=== PATIENT | female | born 1975 | race Caucasian/White ===

== ENCOUNTER 2025-06-16 15:31 | Emergency (ER) | payer BC ==
[2025-06-16 15:53] VITALS: RESP 16; TEMP 97
--- NOTE | 2025-06-16 15:59 | ERPHSYRPT ---
- History of Present Illness Time Seen by Provider: 06/16/25 15:50 Source: patient Exam Limitations: no limitations Patient Subjective Stated Complaint: patient states she started having palpitations from 160-190s heart rate, patient states she feels as if her heart rate is irregular, patient stated she could feel her face getting red/flushed Triage Nursing Assessment: patient presents to ed via private vehicle, patient able to walk into ed without complication, patient alert and oriented x 4, patient states her heart rate has been elevated running 160s-190s throughout the day, patient states she has anxiety and this has happened before; however, has not lasted this long, patient denies chest pain, skin n/w/d, vitals wnl Physician History: 49-year-old female presents emergency room with episodic palpitations patient reports she was at work when her monitor her [employer] Watch went off to like the 180s she denies any chest pain no shortness of breath at this time she drinks a diet Mountain Dew every day Timing/Duration: today Severity: mild Associated Symptoms: No nausea, No vomiting, No shortness of breath, No heartburn, No diaphoresis, No chest pain Allergies/Adverse Reactions: No Known Drug Allergies Allergy (Unverified 06/16/25 15:45) Travel Risk - International Travel Have you traveled outside of the country in past 3 weeks: No - Emerging Infectious Disease Are you exhibiting symptoms associated with any current EIDs: No - Review of Systems Constitutional: No Fever, No Chills Eyes: No Symptoms Ears, Nose, & Throat: No Symptoms Respiratory: No Cough, No Dyspnea Cardiac: Palpitations, No Chest Pain, No Edema, No Syncope Abdominal/Gastrointestinal: No Abdominal Pain, No Nausea, No Vomiting, No Diarrhea Genitourinary Symptoms: No Dysuria Musculoskeletal: No Back Pain, No Neck Pain Skin: No Rash Neurological: No Dizziness, No Focal Weakness, No Sensory Changes Psychological: No Symptoms Endocrine: No Symptoms All Other Systems: Reviewed and Negative - Past Medical History Pertinent Past Medical History: No Other Medical History: duloxetine 20 mg, control - Past Surgical History Past Surgical History: Yes Other Surgical History: back surgery in 1995 - Female History Hx Now: No - Social History Smoking Status: Never smoker Exposure to second hand smoke: No Drug Use: none - Social Determinants of Health Will the patient participate in the screening: Yes Do you worry about a steady place to live?: No Do you have any problems with any of the following?: No known problems In the past 12 months,have you had to go without utilities?: No Transportation Issues: No Has anyone in your support network made you feel unsafe?: No Have you or anyone in your house had to go w/o enough food: No - Nursing Vital Signs Nursing Vital Signs: Initial Vital Signs Temperature 97 F 06/16/25 15:32 Pulse Rate 93 H 06/16/25 15:32 Respiratory Rate 16 06/16/25 15:32 Blood Pressure 109/69 06/16/25 15:32 O2 Sat by Pulse Oximetry 99 06/16/25 15:32 Pain Scale Pain Intensity 0 - Physical Exam General Appearance: no apparent distress, alert Eye Exam: PERRL/EOMI, eyes nml inspection Ears, Nose, Throat Exam: normal ENT inspection, TMs normal, pharynx normal, moist mucous membranes Neck Exam: normal inspection, non-tender, supple, full range of motion Respiratory Exam: normal breath sounds, lungs clear, No respiratory distress Cardiovascular Exam: regular rate/rhythm, normal heart sounds, normal peripheral pulses Gastrointestinal/Abdomen Exam: soft, normal bowel sounds, No tenderness, No mass Back Exam: normal inspection, normal range of motion, No CVA tenderness, No vertebral tenderness Extremity Exam: normal inspection, normal range of motion, pelvis stable Neurologic Exam: alert, oriented x 3, cooperative, normal mood/affect, nml cerebellar function, nml station & gait, sensation nml, No motor deficits Skin Exam: normal color, warm, dry, No rash Lymphatic Exam: No adenopathy SpO2: 99 - Course Nursing assessment & vital signs reviewed: Yes EKG Interpreted by Me: RATE (85), Sinus Rhythm, Non-specific ST Changes, Other (no STEMI) Ordered Tests: Active Orders 24 hr Category Date Time Status Counselor Education Professor STAT Care 06/16/25 15:52 Active EKG-ER Only STAT Care 06/16/25 15:51 Active IV Insertion STAT Care 06/16/25 15:51 Active CHEST 1 VIEW (PORTABLE) Stat Exams 06/16/25 15:52 Completed CBC W DIFF Stat Lab 06/16/25 15:50 Completed CMP Stat Lab 06/16/25 15:50 Completed D-DIMER QUANTITATIVE Stat Lab 06/16/25 15:50 Completed HCG QUALITATIVE, URINE Stat Lab 06/16/25 Ordered MAGNESIUM Stat Lab 06/16/25 15:50 Completed TROPONIN Q3H Lab 06/16/25 15:50 Completed TROPONIN Q3H Lab 06/16/25 19:00 Ordered TSH [TSH, 3RD Generation] Stat Lab 06/16/25 15:50 Completed UA W/RFX UR CULTURE Stat Lab 06/16/25 15:51 Ordered Bardy 3-7 Day Holter ONCE RT 06/16/25 16:31 Completed Lab/Rad Data: Laboratory Result Diagrams 06/16/25 15:50 06/16/25 15:50 Laboratory Results 06/16/25 06/16/25 06/16/25 Range/Units 15:50 15:50 15:50 WBC (3.98-10.04) x10^3/uL RBC (3.93-5.22) x10^6/uL Hgb (11.2-15.7) g/dL Hct (34.1-44.9) % MCV (79.4-94.8) fL MCH (25.6-32.2) pg MCHC (32.2-35.5) g/dL RDW (11.7-14.4) % Plt Count (182-369) x10^3/uL MPV (9.4-12.3) fL Gran % (34.0-71.1) % Immature Gran % (Auto) (0.001-0.429) % Nucleat RBC Rel Count (0.00-0.2) % Eos # (Auto) (0.04-0.36) x10^3/uL Immature Gran # (Auto) (0.001-0.031) x10^3u/L Absolute Lymphs (auto) (1.18-3.74) x10^3/uL Absolute Monos (auto) (0.24-0.86) x10^3/uL Absolute Nucleated RBC (0.00-0.012) x10^3u/L Lymphocytes % (19.3-51.7) % Monocytes % (4.7-12.5) % Eosinophils % (0.7-5.8) % Basophils % (0.1-1.2) % Absolute Granulocytes (1.56-6.13) x10^3/uL Basophils # (0.01-0.08) x10^3/uL D-Dimer 0.37 (0.0-0.50) mg/L Sodium (135-145) mmol/L Potassium (3.5-5.1) mmol/L Chloride (98-107) mmol/L Carbon Dioxide (22-30) mmol/L Anion Gap (5-15) MEQ/L BUN (7-17) mg/dL Creatinine (0.52-1.04) mg/dL Estimated GFR ML/MIN Glucose (74-106) mg/dL Calcium (8.4-10.2) mg/dL Magnesium (1.6-2.3) mg/dL Total Bilirubin (0.2-1.3) mg/dL AST (14-36) U/L ALT (0-35) U/L Alkaline Phosphatase (38-126) U/L Troponin I < 0.012 (0.000-0.033) ng/mL Serum Total Protein (6.3-8.2) g/dL Albumin (3.5-5.0) g/dL TSH 3rd Generation 1.241 (0.470-4.680) mIU/L 06/16/25 06/16/25 Range/Units 15:50 15:50 WBC 8.4 (3.98-10.04) x10^3/uL RBC 4.57 (3.93-5.22) x10^6/uL Hgb 14.3 (11.2-15.7) g/dL Hct 43.9 (34.1-44.9) % MCV 96.1 H (79.4-94.8) fL MCH 31.3 (25.6-32.2) pg MCHC 32.6 (32.2-35.5) g/dL RDW 13.1 (11.7-14.4) % Plt Count 391 H (182-369) x10^3/uL MPV 8.6 L (9.4-12.3) fL Gran % 50.1 (34.0-71.1) % Immature Gran % (Auto) 0.4 (0.001-0.429) % Nucleat RBC Rel Count 0.0 (0.00-0.2) % Eos # (Auto) 0.36 (0.04-0.36) x10^3/uL Immature Gran # (Auto) 0.03 (0.001-0.031) x10^3u/L Absolute Lymphs (auto) 3.27 (1.18-3.74) x10^3/uL Absolute Monos (auto) 0.45 (0.24-0.86) x10^3/uL Absolute Nucleated RBC 0.00 (0.00-0.012) x10^3u/L Lymphocytes % 39.0 (19.3-51.7) % Monocytes % 5.4 (4.7-12.5) % Eosinophils % 4.3 (0.7-5.8) % Basophils % 0.8 (0.1-1.2) % Absolute Granulocytes 4.21 (1.56-6.13) x10^3/uL Basophils # 0.07 (0.01-0.08) x10^3/uL D-Dimer (0.0-0.50) mg/L Sodium 138 (135-145) mmol/L Potassium 4.5 (3.5-5.1) mmol/L Chloride 102 (98-107) mmol/L Carbon Dioxide 25 (22-30) mmol/L Anion Gap 14.5 (5-15) MEQ/L BUN 10 (7-17) mg/dL Creatinine 0.92 (0.52-1.04) mg/dL Estimated GFR 77.3 ML/MIN Glucose 94 (74-106) mg/dL Calcium 9.9 (8.4-10.2) mg/dL Magnesium 2.3 (1.6-2.3) mg/dL Total Bilirubin 0.20 (0.2-1.3) mg/dL AST 32 (14-36) U/L ALT 24 (0-35) U/L Alkaline Phosphatase 77 (38-126) U/L Troponin I (0.000-0.033) ng/mL Serum Total Protein 7.6 (6.3-8.2) g/dL Albumin 4.5 (3.5-5.0) g/dL TSH 3rd Generation (0.470-4.680) mIU/L - Progress Progress Note: 06/16/25 16:58 Procedures: [id number] RAD/CHEST 1 VIEW (PORTABLE) Indication: Palpitations. Comparison: None Portable chest demonstrates normal heart, lungs, and bony thorax. 06/16/25 17:09 Portable chest demonstrates normal heart, lungs, and bony thorax. - Departure Departure Disposition: Home Clinical Impression: Palpitations Condition: Stable Critical Care Time: No Referrals: LIGIA PETTIT MD [Primary Care Provider, [facility]] - Follow up/PCP as directed Instructions: Palpitations Outpatient Orders: Holter Monitor Facility: [facility]. Hosp, Location: RESPIRATORY THERAPY
[2025-06-16 16:00] VITALS: O2SAT 99
[2025-06-16 16:04] LABS: BASOPHIL % 0.8 % (0.1-1.2); Basophil (Absolute #) 0.07 x10^3/uL (0.01-0.08); Eosinophil (Absolute #) 0.36 x10^3/uL (0.04-0.36); Hematocrit 43.9 % (34.1-44.9); Hemoglobin 14.3 g/dL (11.2-15.7); IMMATURE GRAN # 0.03 x10^3u/L (0.001-0.031); IMMATURE GRAN % 0.4 % (0.001-0.429); Lymphocyte (Absolute #) 3.27 x10^3/uL (1.18-3.74); Mean Corpuscular Hemoglobin 31.3 pg (25.6-32.2); Mean Corpuscular Hgb Concent. 32.6 g/dL (32.2-35.5); Monocyte (Absolute #) 0.45 x10^3/uL (0.24-0.86); NUCLEATED RBC # 0.00 x10^3u/L (0.00-0.012); NUCLEATED RBC % 0.0 % (0.00-0.2); Platelet Count 391 x10^3/uL (182-369); Red Blood Count 4.57 x10^6/uL (3.93-5.22); White Blood Count 8.4 x10^3/uL (3.98-10.04)
[2025-06-16 16:18] LABS: Calcium 9.9 mg/dL (8.4-10.2); Carbon Dioxide 25.0 mmol/L (22-30); Creatinine 1 0.92 mg/dL (0.52-1.04); EST GLOMERULAR FILTRATION RATE 77.3 ML/MIN; Glucose 94.0 mg/dL (74-106); Potassium 4.5 mmol/L (3.5-5.1); SGOT/AST 32.0 U/L (14-36); SGPT/ALT 24.0 U/L (0-35); Total Protein 7.6 g/dL (6.3-8.2)
--- NOTE | 2025-06-16 16:55 | XRAY ---
Indication: Palpitations. Comparison: None Portable chest demonstrates normal heart, lungs, and bony thorax.
[2025-06-16 17:31] LABS: HCG URINE TEST NEGATIVE (NEGATIVE)
[2025-06-16 17:35] LABS: Glucose, Urine Negative (Negative); Protein,Urine Dip Negative (Negative); RBC 0-2 /HPF (0-5); WBC 0-2 /HPF (0-5)
[2025-06-16 17:45] VITALS: BP 102/70; PULSE 81
== END 2025-06-16 18:07 | disposition home or self-care (01) ==
LOC: ED 15:31
DX: R00.2 Palpitations (principal); I16.0 Hypertensive urgency